=== PATIENT | female | born 1970 | race Caucasian/White ===

== ENCOUNTER → 2016-06-16 | Outpatient (CLI) | payer OTHER | LOC: MAMO 13:08 | DX: Z12.31 Encounter for screening mammogram for malignant neoplasm of breast (principal) | CPT/HCPCS: G0202 ==

== ENCOUNTER 2021-08-05 14:31 | Inpatient (IN) | payer OTHER, MEDICAID ==
[~2021-08-05] VITALS: Ht 162.6 cm; Wt 104.3 kg
[2021-08-05 15:13] LABS: HEMOGLOBIN 11.9 gm/dl (12.3-15.3); RED BLOOD COUNT 4.91 M/UL (4.00-5.10); WHITE BLOOD COUNT 15.1 K/UL (4.5-11.0)
[2021-08-05 15:28] LABS: BUN/CREATININE RATIO 19 (0-10)
[2021-08-06 05:52] LABS: BUN/CREATININE RATIO 19 (0-10)
[2021-08-06 05:57] LABS: HEMOGLOBIN 8.8 gm/dl (12.3-15.3); RED BLOOD COUNT 3.62 M/UL (4.00-5.10); WHITE BLOOD COUNT 6.6 K/UL (4.5-11.0)
[2021-08-07 05:00] LABS: HEMOGLOBIN 8.3 gm/dl (12.3-15.3); RED BLOOD COUNT 3.46 M/UL (4.00-5.10)
[2021-08-07 05:30] LABS: BUN/CREATININE RATIO 18 (0-10)
[2021-08-08 03:09] LABS: HEMOGLOBIN 8.8 gm/dl (12.3-15.3); RED BLOOD COUNT 3.68 M/UL (4.00-5.10); WHITE BLOOD COUNT 8.7 K/UL (4.5-11.0)
[2021-08-08 03:32] LABS: BUN/CREATININE RATIO 15 (0-10)
[2021-08-09 03:17] LABS: HEMOGLOBIN 8.7 gm/dl (12.3-15.3); RED BLOOD COUNT 3.55 M/UL (4.00-5.10); WHITE BLOOD COUNT 8.3 K/UL (4.5-11.0)
[2021-08-09 03:47] LABS: BUN/CREATININE RATIO 13 (0-10)
[2021-08-10 04:19] LABS: HEMOGLOBIN 9.1 gm/dl (12.3-15.3); RED BLOOD COUNT 3.74 M/UL (4.00-5.10); WHITE BLOOD COUNT 8.3 K/UL (4.5-11.0)
[2021-08-10 05:56] LABS: BUN/CREATININE RATIO 37 (0-10)
[2021-08-11 06:30] LABS: HEMOGLOBIN 10.2 gm/dl (12.3-15.3)
[2021-08-11 06:32] LABS: RED BLOOD COUNT 4.13 M/UL (4.00-5.10); WHITE BLOOD COUNT 13.1 K/UL (4.5-11.0)
[2021-08-11 06:42] LABS: BUN/CREATININE RATIO 39 (0-10)
[2021-08-12] MEDS ORDERED: SYNTHROID25 MCG PO (10:50)
[2021-08-12] MEDS ORDERED: FERROUS GLUCON324 M2 PO (10:50)
[2021-08-12] MEDS ORDERED: TYLENOL 8 HOUR650 MG PO (10:50)
[2021-08-12] MEDS ORDERED: ENOXAPARIN150 MG/1 M SC (10:50)
[2021-08-12] MEDS ORDERED: DOME-PASTE BANDA1 EA TOP (10:50)
[2021-08-12] MEDS ORDERED: THERAGRAN M TAB1 EA PO (10:50)
[2021-08-12] MEDS ORDERED: AMOX TR-K CLV1 EAC4 PO (10:50)
[2021-08-12] MEDS ORDERED: VITAMIN B-12100 MCG PO (10:50)
[2021-08-12] MEDS ORDERED: FOLIC ACID 1 MG1 MG PO (10:50)
[2021-08-12] MEDS ORDERED: LOVENOX100 MG/1 M SQ (17:31)
== END 2021-08-12 17:58 | disposition home health service (06) | DRG 871 ==
LOC: ER1 14:31 → CDU 17:26 → M/S 17:26
PROVIDERS: Internal Medicine Infectious Disease; Physician Assistant; ADMIT Internal Medicine
DX: A41.9 Sepsis, unspecified organism (principal); L89.323 Pressure ulcer of left buttock, stage 3; L89.313 Pressure ulcer of right buttock, stage 3; Z20.822 Contact with and (suspected) exposure to COVID-19; L89.893 Pressure ulcer of other site, stage 3; L97.919 Non-pressure chronic ulcer of unspecified part of right lower leg with unspecified severity; L03.115 Cellulitis of right lower limb; I82.403 Acute embolism and thrombosis of unspecified deep veins of lower extremity, bilateral; E44.0 Moderate protein-calorie malnutrition; Z68.43 Body mass index [BMI] 50.0-59.9, adult; T87.89 Other complications of amputation stump; R65.20 Severe sepsis without septic shock; E78.5 Hyperlipidemia, unspecified; I83.018 Varicose veins of right lower extremity with ulcer other part of lower leg; E66.01 Morbid (severe) obesity due to excess calories; D63.1 Anemia in chronic kidney disease; E53.8 Deficiency of other specified B group vitamins; E03.8 Other specified hypothyroidism; R53.81 Other malaise; E11.51 Type 2 diabetes mellitus with diabetic peripheral angiopathy without gangrene; Y83.8 Other surgical procedures as the cause of abnormal reaction of the patient, or of later complication, without mention of misadventure at the time of the procedure; E11.622 Type 2 diabetes mellitus with other skin ulcer; Z79.4 Long term (current) use of insulin; Z89.512 Acquired absence of left leg below knee; Z90.49 Acquired absence of other specified parts of digestive tract; Z90.710 Acquired absence of both cervix and uterus; Z88.8 Allergy status to other drugs, medicaments and biological substances; Z87.891 Personal history of nicotine dependence; Z82.49 Family history of ischemic heart disease and other diseases of the circulatory system; Z83.3 Family history of diabetes mellitus
CPT/HCPCS: 36415; 71045; 71275; 73590; 73700; 80048; 80053; 80202; 81001; 82607; 82728; 82746; 83540; 83550; 83605; 83735; 83880; 84443; 84703; 85025; 85379; 85652; 86140; 87040; 93005; 93925; 93970; 96372; 96374; 96375; 96376; 97110-GP-CQ; 97161; 97530; 97530-GP-CQ; 99285; J1650; J1756; J2185; J3370; J3420; J7030; J7070; Q9967

== ENCOUNTER → 2021-09-05 | Outpatient (CLI) | payer OTHER ==
[~2021-09-05] MED LIST: AMOX TR-K CLV1 EAC4 PO; DOME-PASTE BANDA1 EA TOP; ENOXAPARIN150 MG/1 M SC; FERROUS GLUCON324 M2 PO; FOLIC ACID 1 MG1 MG PO; LOVENOX100 MG/1 M SQ; SYNTHROID25 MCG PO; THERAGRAN M TAB1 EA PO; TYLENOL 8 HOUR650 MG PO; VITAMIN B-12100 MCG PO
== END ==
LOC: WCC 07:51
DX: I82.401 Acute embolism and thrombosis of unspecified deep veins of right lower extremity (principal); I87.2 Venous insufficiency (chronic) (peripheral); L97.812 Non-pressure chronic ulcer of other part of right lower leg with fat layer exposed; I73.9 Peripheral vascular disease, unspecified; E44.0 Moderate protein-calorie malnutrition; Z96.0 Presence of urogenital implants; Z89.512 Acquired absence of left leg below knee; Z87.891 Personal history of nicotine dependence; Z79.899 Other long term (current) drug therapy

== ENCOUNTER → 2021-09-21 | Outpatient (CLI) | payer OTHER | LOC: WCC 07:06 | DX: I82.401 Acute embolism and thrombosis of unspecified deep veins of right lower extremity (principal); I87.2 Venous insufficiency (chronic) (peripheral); L97.812 Non-pressure chronic ulcer of other part of right lower leg with fat layer exposed; I73.9 Peripheral vascular disease, unspecified; E44.0 Moderate protein-calorie malnutrition; Z96.0 Presence of urogenital implants; Z89.512 Acquired absence of left leg below knee; Z79.899 Other long term (current) drug therapy ==

== ENCOUNTER → 2021-10-13 | Outpatient (CLI) | payer OTHER | END | disposition home or self-care (01) | LOC: WCC 07:22 | DX: I87.2 Venous insufficiency (chronic) (peripheral) (principal); L97.812 Non-pressure chronic ulcer of other part of right lower leg with fat layer exposed; I82.401 Acute embolism and thrombosis of unspecified deep veins of right lower extremity; E44.0 Moderate protein-calorie malnutrition; Z89.512 Acquired absence of left leg below knee; Z96.0 Presence of urogenital implants ==

== ENCOUNTER → 2021-10-20 | Outpatient (CLI) | payer OTHER | LOC: WCC 07:32 | DX: I87.2 Venous insufficiency (chronic) (peripheral) (principal); L97.812 Non-pressure chronic ulcer of other part of right lower leg with fat layer exposed; I73.9 Peripheral vascular disease, unspecified; I82.401 Acute embolism and thrombosis of unspecified deep veins of right lower extremity; E44.0 Moderate protein-calorie malnutrition; I25.10 Atherosclerotic heart disease of native coronary artery without angina pectoris; Z89.512 Acquired absence of left leg below knee; Z96.0 Presence of urogenital implants ==

== ENCOUNTER → 2021-10-27 | Outpatient (CLI) | payer OTHER | LOC: WCC 07:11 | DX: I82.401 Acute embolism and thrombosis of unspecified deep veins of right lower extremity (principal); I87.2 Venous insufficiency (chronic) (peripheral); L97.812 Non-pressure chronic ulcer of other part of right lower leg with fat layer exposed; I73.9 Peripheral vascular disease, unspecified; E44.0 Moderate protein-calorie malnutrition; Z89.512 Acquired absence of left leg below knee; Z96.0 Presence of urogenital implants ==

== ENCOUNTER → 2021-10-31 | Outpatient (CLI) | payer OTHER | LOC: OPSV 12:00 | DX: R33.9 Retention of urine, unspecified (principal); S81.801A Unspecified open wound, right lower leg, initial encounter ==

== ENCOUNTER → 2021-11-03 | Outpatient (CLI) | payer OTHER | LOC: WCC 07:28 | DX: I82.401 Acute embolism and thrombosis of unspecified deep veins of right lower extremity (principal); I87.2 Venous insufficiency (chronic) (peripheral); L97.812 Non-pressure chronic ulcer of other part of right lower leg with fat layer exposed; I73.9 Peripheral vascular disease, unspecified; E44.0 Moderate protein-calorie malnutrition; Z89.512 Acquired absence of left leg below knee; Z96.0 Presence of urogenital implants ==

== ENCOUNTER → 2021-11-10 | Outpatient (CLI) | payer OTHER | END | disposition home or self-care (01) | LOC: WCC 07:15 | PROC: 0JBN0ZZ Excision of Right Lower Leg Subcutaneous Tissue and Fascia, Open Approach (ICD-10-PCS; principal; 2021-11-10) | PROC: 2W1QX6Z Compression of Right Lower Leg using Pressure Dressing (ICD-10-PCS; 2021-11-10) | DX: L97.812 Non-pressure chronic ulcer of other part of right lower leg with fat layer exposed (principal); I73.9 Peripheral vascular disease, unspecified; I25.10 Atherosclerotic heart disease of native coronary artery without angina pectoris; I49.9 Cardiac arrhythmia, unspecified; E44.0 Moderate protein-calorie malnutrition; Z68.41 Body mass index [BMI] 40.0-44.9, adult; Z79.01 Long term (current) use of anticoagulants; Z79.890 Hormone replacement therapy; Z79.899 Other long term (current) drug therapy; Z86.718 Personal history of other venous thrombosis and embolism; Z89.512 Acquired absence of left leg below knee; Z96.0 Presence of urogenital implants ==

== ENCOUNTER → 2021-11-17 | Outpatient (CLI) | payer OTHER | LOC: WCC 07:12 | DX: I82.401 Acute embolism and thrombosis of unspecified deep veins of right lower extremity (principal); L97.812 Non-pressure chronic ulcer of other part of right lower leg with fat layer exposed; I73.9 Peripheral vascular disease, unspecified; E44.0 Moderate protein-calorie malnutrition; Z96.0 Presence of urogenital implants; Z89.512 Acquired absence of left leg below knee ==

== ENCOUNTER → 2021-11-23 | Outpatient (CLI) | payer OTHER | LOC: WCC 07:18 | DX: I87.2 Venous insufficiency (chronic) (peripheral) (principal); L97.812 Non-pressure chronic ulcer of other part of right lower leg with fat layer exposed; I73.9 Peripheral vascular disease, unspecified; I82.401 Acute embolism and thrombosis of unspecified deep veins of right lower extremity; E44.0 Moderate protein-calorie malnutrition; I25.10 Atherosclerotic heart disease of native coronary artery without angina pectoris; Z96.0 Presence of urogenital implants; Z89.512 Acquired absence of left leg below knee; Z79.01 Long term (current) use of anticoagulants ==

== ENCOUNTER → 2021-11-29 | Outpatient (CLI) | payer OTHER | LOC: WCC 07:16 | DX: I87.2 Venous insufficiency (chronic) (peripheral) (principal); L97.812 Non-pressure chronic ulcer of other part of right lower leg with fat layer exposed; I25.10 Atherosclerotic heart disease of native coronary artery without angina pectoris ==

== ENCOUNTER → 2021-12-01 | Outpatient (CLI) | payer OTHER | LOC: OPSV 09:39 | DX: R33.9 Retention of urine, unspecified (principal); S81.801A Unspecified open wound, right lower leg, initial encounter | CPT/HCPCS: G0463 ==

== ENCOUNTER → 2021-12-06 | Outpatient (CLI) | payer OTHER | END | disposition home or self-care (01) | LOC: WCC 07:25 | DX: I87.2 Venous insufficiency (chronic) (peripheral) (principal); L97.812 Non-pressure chronic ulcer of other part of right lower leg with fat layer exposed; I82.401 Acute embolism and thrombosis of unspecified deep veins of right lower extremity; E44.0 Moderate protein-calorie malnutrition; Z89.512 Acquired absence of left leg below knee; Z96.0 Presence of urogenital implants ==

== ENCOUNTER → 2021-12-12 | Outpatient (CLI) | payer OTHER | END | disposition home or self-care (01) | LOC: WCC 07:19 | DX: I87.2 Venous insufficiency (chronic) (peripheral) (principal); L97.812 Non-pressure chronic ulcer of other part of right lower leg with fat layer exposed; I73.9 Peripheral vascular disease, unspecified; I82.401 Acute embolism and thrombosis of unspecified deep veins of right lower extremity; E44.0 Moderate protein-calorie malnutrition; Z89.512 Acquired absence of left leg below knee; Z96.0 Presence of urogenital implants; Z68.41 Body mass index [BMI] 40.0-44.9, adult ==